=== PATIENT | female | born 1950 | race Caucasian/White ===

== ENCOUNTER 2021-01-19 17:52 | Day surgery (SDCO) | payer MEDICARE, OTHER ==
[~2021-01-19] VITALS: Ht 157.5 cm; Wt 69.7 kg
[2021-01-19 18:39] LABS: BASOPHIL 0.2 % (0-2); EOSINOPHIL 0.1 % (0-7); HCT 33.6 % (37.0-47.0); HGB 10.8 g/dl (12.5-16.0); LYMPHOCYTE 6.8 % (15-48); MCH 27.6 pg (25.0-31.0); MCHC 32.1 g/dL (32.0-36.0); MCV 85.7 fL (78.0-100.0); MONOCYTE 6.4 % (0-12); MPV 10.6 fL (6.0-9.5); NEUTROPHIL 86.1 % (41-80); NRBC 0; PLT 216 K/uL (150-400); RBC 3.92 M/uL (4.20-5.40); RDW 13.4 % (11.5-14.0); WBC 13.2 K/uL (4.0-10.5)
[2021-01-19 19:35] LABS: ALBUMIN 3.2 g/dL (3.4-5.0); ALKALINE PHOSHATASE 109 U/L (46-116); ALT 67 U/L (14-59); AST 130 U/L (15-37); BILIRUBIN - TOTAL 0.9 mg/dL (0.2-1.0); BUN 6 mg/dL (7-18); BUN/CREAT RATIO (CALC) 13.3 RATIO; C-REACTIVE PROTEIN < 0.20 mg/dL (<=0.90); CHLORIDE 89 mmol/L (98-107); CO2 (BICARBONATE) 24 mmol/L (21-32); CPK 408 U/L (26-192); CREATININE 0.45 mg/dL (0.51-0.95); GLUCOSE 139 mg/dL (74-106); MAGNESIUM 1.4 mg/dL (1.8-2.4); POTASSIUM 3.6 mmol/L (3.5-5.1); TOTAL PROTEIN 6.2 g/dL (6.4-8.2)
[2021-01-19 20:53] LABS: BILIRUBIN NEGATIVE (NEGATIVE); BLOOD 1+ Ery/uL (NEGATIVE); CLARITY CLEAR (CLEAR); COLOR YELLOW (YELLOW); GLUCOSE (U) NORMAL (NORMAL); LEUKOCYTES NEGATIVE Leu/uL (NEGATIVE); NITRITE NEGATIVE (NEGATIVE); PROTEIN NEGATIVE (NEGATIVE); SPECIFIC GRAVITY <=1.005 (1.001-1.030); UROBILINOGEN 0.2 mg/dL (0.2-1.0); pH 6.5 (5.0-9.0)
[2021-01-19 20:57] LABS: AMPHETAMINES NEGATIVE (NEGATIVE); BARBITURATES NEGATIVE (NEGATIVE); ECSTASY (MDMA) NEGATIVE (NEGATIVE); MARIJUANA (THC) NEGATIVE (NEGATIVE); METHADONE NEGATIVE (NEGATIVE); OPIATES NEGATIVE (NEGATIVE); OXYCODONE POSITIVE (NEGATIVE)
[2021-01-19 21:01] LABS: SQUAMOUS EPITHELIAL CELLS RARE
[2021-01-20 02:53] LABS: HCT 34.1 % (37.0-47.0); MCH 27.5 pg (25.0-31.0); MCHC 32.3 g/dL (32.0-36.0); MCV 85.3 fL (78.0-100.0); MPV 11.1 fL (6.0-9.5); RDW 13.5 % (11.5-14.0); WBC 7.9 K/uL (4.0-10.5)
[2021-01-20 03:11] LABS: BUN/CREAT RATIO (CALC) 9.3 RATIO; CREATININE 0.54 mg/dL (0.51-0.95); POTASSIUM 3.5 mmol/L (3.5-5.1)
[2021-01-20 03:49] LABS: RBC (FLUID) 7000 RBC/uL; WBC (FLUID) 9 WBC/uL
[2021-01-20 03:52] LABS: CLARITY (FLUID) HAZY; COLOR (FLUID) PINK
[2021-01-20 04:51] LABS: FT4 (FREE T4) 1.1 ng/dL (0.76-1.46)
[2021-01-20] MEDS ORDERED: MELATONIN10 M4 SL (05:11)
[2021-01-20] MEDS ORDERED: OXYCODONE-APAP1 TAB PO (05:12)
[2021-01-20] MEDS ORDERED: GABAPENTIN300 MG PO (05:13)
[2021-01-20] MEDS ORDERED: MIRTAZAPINE45 MG PO (05:13)
[2021-01-20] MEDS ORDERED: CLONAZEPAM 1MG T1 MG PO (05:14)
[2021-01-20] MEDS ORDERED: BACLOFEN10 MG PO (05:14)
[2021-01-20] MEDS ORDERED: LEVOTHYROXINE50 MCG PO (05:15)
[2021-01-20 10:06] LABS: BUN 4 mg/dL (7-18); BUN/CREAT RATIO (CALC) 6.7 RATIO; C-REACTIVE PROTEIN <0.20 mg/dL (<=0.90); CHLORIDE 115 mmol/L (98-107); CO2 (BICARBONATE) 26 mmol/L (21-32); GLUCOSE 89 mg/dL (74-106); PHOSPHORUS 2.8 mg/dL (2.6-4.7); POTASSIUM 3.7 mmol/L (3.5-5.1)
[2021-01-20 14:30] LABS: BUN/CREAT RATIO (CALC) 6.5 RATIO; CREATININE 0.62 mg/dL (0.51-0.95); POTASSIUM 3.5 mmol/L (3.5-5.1)
[2021-01-21 06:01] LABS: BASOPHIL 1.2 % (0-2); EOSINOPHIL 4.6 % (0-7); HCT 33.2 % (37.0-47.0); HGB 10.3 g/dl (12.5-16.0); LYMPHOCYTE 30.3 % (15-48); MCH 27.3 pg (25.0-31.0); MCV 88.1 fL (78.0-100.0); MONOCYTE 10.1 % (0-12); MPV 11.1 fL (6.0-9.5); NEUTROPHIL 53.8 % (41-80); NRBC 0; PLT 207 K/uL (150-400); RBC 3.77 M/uL (4.20-5.40); RDW 14.5 % (11.5-14.0); WBC 5.1 K/uL (4.0-10.5)
[2021-01-21 06:27] LABS: ALBUMIN 2.9 g/dL (3.4-5.0); ALKALINE PHOSHATASE 82 U/L (46-116); ALT 41 U/L (14-59); AST 35 U/L (15-37); BILIRUBIN - TOTAL 0.4 mg/dL (0.2-1.0); BUN 3 mg/dL (7-18); BUN/CREAT RATIO (CALC) 5.1 RATIO; C-REACTIVE PROTEIN <0.20 mg/dL (<=0.90); CHLORIDE 110 mmol/L (98-107); CO2 (BICARBONATE) 27 mmol/L (21-32); CREATININE 0.59 mg/dL (0.51-0.95); GLOBULIN (CALCULATION) 2.3 g/dL; GLUCOSE 87 mg/dL (74-106); POTASSIUM 3.1 mmol/L (3.5-5.1); TOTAL PROTEIN 5.2 g/dL (6.4-8.2)
[2021-01-22 07:11] LABS: BASOPHIL 0.8 % (0-2); EOSINOPHIL 6.9 % (0-7); HCT 33.1 % (37.0-47.0); HGB 10.2 g/dl (12.5-16.0); LYMPHOCYTE 31.3 % (15-48); MCH 27.6 pg (25.0-31.0); MCHC 30.8 g/dL (32.0-36.0); MCV 89.7 fL (78.0-100.0); MONOCYTE 10.8 % (0-12); MPV 10.8 fL (6.0-9.5); NEUTROPHIL 49.9 % (41-80); NRBC 0; PLT 188 K/uL (150-400); RBC 3.69 M/uL (4.20-5.40); RDW 14.6 % (11.5-14.0)
[2021-01-22 07:44] LABS: ALBUMIN 2.8 g/dL (3.4-5.0); BILIRUBIN - TOTAL 0.4 mg/dL (0.2-1.0); BUN/CREAT RATIO (CALC) 9.4 RATIO; CREATININE 0.64 mg/dL (0.51-0.95); GLOBULIN (CALCULATION) 2.5 g/dL; POTASSIUM 3.4 mmol/L (3.5-5.1); TOTAL PROTEIN 5.3 g/dL (6.4-8.2)
[2021-01-22] MEDS ORDERED: GABAPENTIN300 MG PO (09:24)
[2021-01-22] MEDS ORDERED: NEURONTIN300 MG PO (09:24)
== END 2021-01-22 11:06 | disposition home or self-care (01) ==
LOC: FER 17:52 → FTCU 01-20 03:33
PROVIDERS: Emergency Medicine; Emergency Medicine Emergency Medical Services; Family Medicine; Nurse Practitioner; ADMIT Internal Medicine
DX: G93.40 Encephalopathy, unspecified (principal); A41.9 Sepsis, unspecified organism; E87.6 Hypokalemia; G89.4 Chronic pain syndrome; E87.1 Hypo-osmolality and hyponatremia; L98.9 Disorder of the skin and subcutaneous tissue, unspecified; R00.0 Tachycardia, unspecified; K44.9 Diaphragmatic hernia without obstruction or gangrene; R41.82 Altered mental status, unspecified; Z98.84 Bariatric surgery status; Z88.0 Allergy status to penicillin; Z79.899 Other long term (current) drug therapy; Z20.822 Contact with and (suspected) exposure to COVID-19
CPT/HCPCS: 36415; 36600; 70450; 71045; 71275; 80048; 80053; 80202; 80305; 81001; 82550; 82803; 82945; 83605; 83735; 84100; 84145; 84155; 84439; 84443; 84484; 85025; 86140; 87040; 87070; 87205; 89051; 93005; 94010; 94760; 94762; 96365; 96367; 96375; 97110; 97162; 97166; 97530-GP; 97535; G0378; G0480; J0133; J0696; J1650; J2060; J2250; J2543; J3010; J3360; J3370; J7030; J7050; J7120; Q9967; U0002